=== PATIENT | male | born 1995 | race Caucasian/White ===

== ENCOUNTER 2018-12-21 13:35 | Observation (INO) | payer OTHER, BC ==
[~2018-12-21 13:35] MED LIST: Enoxaparin 40 MG/0.4 ML Syringe SUBCUT SCH
--- NOTE | 2018-12-21 14:07 | CR ---
Clinical history: 23-year-old male exposed to carbon monoxide. Interpretation: Upright AP portable chest with external cardiac specialist leads. Normal cardiac silhouette without alveolar edema or dependent pleural effusion. No lung mass, hilar lymphadenopathy or focal lobar pneumonia. No atelectasis/collapse. No pneumothorax or signs of pneumomediastinum. CONCLUSION: No acute cardiopulmonary abnormality.
[2018-12-21 14:21] LABS: ANION GAP 13.7; CHLORIDE,CL 102 mmol/L (101-111); SODIUM,NA 137 mmol/L (135-145)
[2018-12-21] MEDS ORDERED: Ondansetron 4 MG/2 ML SDV IVPUSH PRN ×2 (15:18→15:28)
--- NOTE | 2018-12-21 15:24 | PCM.HP ---
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 The patient was exposed to carbon monoxide at the place of work. There was a gas leak at the place of work which was supposed to have been fixed about 2 weeks ago. Patient was on duty since yesterday evening. Woke up this morning and was having severe headache. Headache was generalized in nature. Intensity was about 8 on a scale cough 0-10. Patient was having dizziness which hhe described as lightheadedness. She also felt somewhat nauseated. He was subsequently brought her to the emergency room. His carpal monoxide was checked and found to be elevated. Patient denies having chest pain. Denies abdominal pain. - Related Data Allergies/Adverse Reactions: Allergies Allergy/AdvReac Type Severity Reaction Status Date / Time No Known Allergies Allergy Verified 12/21/18 13:54 Home Medications: Home Meds . [No Known Home Meds] 08/27/14 [History] Past Medical History - Past Health History Medical/Surgical History: Denies Medical/Surgical History HEENT History: Reports: None Cardiovascular History: Reports: None Respiratory History: Reports: None Gastrointestinal History: Reports: None Genitourinary History: Reports: None Musculoskeletal History: Reports: None Neurological History: Reports: None Psychiatric History: Reports: None Endocrine/Metabolic History: Reports: None Hematologic History: Reports: None Immunologic History: Reports: None Oncologic (Cancer) History: Reports: None Dermatologic History: Reports: None - Infectious Disease History Infectious Disease History: Reports: None - Past Surgical History Head Surgeries/Procedures: Reports: None Social & Family History - Family History Family Medical History: Noncontributory - Tobacco Use Smoking Status *Q: Never Smoker Second Hand Smoke Exposure: No - Caffeine Use Caffeine Use: Reports: None - Recreational Drug Use Recreational Drug Use: No - Living Situation & Occupation Living situation: Reports: Single, with Family Occupation: Employed H&P Review of Systems - Review of Systems: Review Of Systems: See Below General: Reports: Malaise, Weakness HEENT: Reports: No Symptoms Pulmonary: Reports: No Symptoms Cardiovascular: Reports: Lightheadedness Gastrointestinal: Reports: No Symptoms Skin: Reports: No Symptoms Psychiatric: Reports: No Symptoms Neurological: Reports: Dizziness, Headache Hematologic/Lymphatic: Reports: No Symptoms Exam - Exam Exam: See Below - Vital Signs Vital Signs: Last Vital Signs Temp 36.7 C 12/21/18 13:55 Pulse 70 12/21/18 13:55 Resp 16 12/21/18 13:55 BP 124/83 12/21/18 13:55 Pulse Ox 100 12/21/18 13:55 Weight: 72.235 kg - Exam Quality Assessment: Supplemental Oxygen General: Alert, Oriented, Cooperative Neck: Supple, Trachea Midline, 2 Lungs: Clear to Auscultation, Normal Respiratory Effort Cardiovascular: Regular Rate, Regular Rhythm GI/Abdominal Exam: Normal Bowel Sounds, Soft, Non-Tender, No Organomegaly, No Distention, No Abnormal Bruit, No Mass, Pelvis Stable Back Exam: Normal Inspection, Full Range of Motion, NT Extremities: Normal Inspection, Normal Range of Motion, Non-Tender, No Pedal Edema, Normal Capillary Refill Neuro Extensive - Mental Status: Alert, Oriented x3, Normal Mood/Affect, Normal Cognition Psychiatric: Alert, Normal Affect, Normal Mood - Patient Data Lab Results Last 24 hrs: Laboratory Results - last 24 hr 12/21/18 12/21/18 12/21/18 Range/Units 13:44 13:44 13:45 WBC 5.0 (5.0-10.0) 10^3/uL RBC 5.37 (4.6-6.2) 10^6/uL Hgb 16.3 (14.0-18.0) g/dL Hct 46.5 (40.0-54.0) % MCV 86.6 (80-100) fL MCH 30.4 (27.0-34.0) pg MCHC 35.1 H (33.0-35.0) g/dL Plt Count 216 (150-450) 10^3/uL Neut % (Auto) 47.0 (42.2-75.2) % Lymph % (Auto) 39.7 (20.5-50.1) % [place] % (Auto) 10.9 H (2-8) % Eos % (Auto) 2.0 (1.0-3.0) % Baso % (Auto) 0.4 (0.0-1.0) % ABG Carboxyhemoglobin 16.9 H (0-10) % Sodium 137 (135-145) mmol/L Potassium 3.7 (3.6-5.0) mmol/L Chloride 102 (101-111) mmol/L Carbon Dioxide 25.0 (21.0-31.0) mmol/L Anion Gap 13.7 BUN 11 (7-18) mg/dL Creatinine 0.9 (0.6-1.3) mg/dL Est Cr Clr Drug Dosing 129.31 mL/min Estimated GFR (MDRD) > 60 BUN/Creatinine Ratio 12.22 Glucose 93 (74-105) mg/dL Calcium 8.9 (8.4-10.2) mg/dl Total Bilirubin 2.0 H (0.2-1.0) mg/dL AST 22 (10-42) IU/L ALT 23 (10-60) IU/L Alkaline Phosphatase 71 (42-121) IU/L Total Protein 7.6 (6.7-8.2) g/dl Albumin 4.6 (3.2-5.5) g/dl Globulin 3.0 Albumin/Globulin Ratio 1.53 Result Diagrams: 12/21/18 13:44 12/21/18 13:44 Problem List Initiated/Reviewed/Updated: Yes Orders Last 24hrs: Active Orders 24 hr Category Date Time Status Patient Status [ADT] Routine ADT 12/21/18 15:18 Ordered Cardiac Monitoring [RC] CONTINUOUS Care 12/21/18 15:19 Ordered EKG Documentation Completion [RC] STAT Care 12/21/18 15:08 Active Oxygen Therapy [RC] PRN Care 12/21/18 15:18 Ordered Up ad Tanesha [RC] ASDIRECTED Care 12/21/18 15:18 Ordered VTE/DVT Education [RC] PER UNIT ROUTINE Care 12/21/18 15:18 Ordered Vital Signs [RC] Q4H Care 12/21/18 15:18 Ordered Regular Diet [DIET] Diet 12/21/18 Lunch Ordered CARBOXYHEMOGLOBIN [BG] Q12H Lab 12/21/18 18:21 Ordered CARBOXYHEMOGLOBIN [BG] Q12H Lab 12/22/18 06:21 Ordered Sodium Chloride 0.9% [Normal Saline] 1,000 ml Med 12/21/18 15:30 Ordered IV ASDIRECTED Resuscitation Status Routine Resus Stat 12/21/18 15:18 Ordered Assessment/Plan Comment:: #. Carbon monoxide poisoning Patient presented with headache, dizziness and nausea Carpal monoxide level is elevated in the blood #. Headache Likely due to carbon monoxide poisoning #.obstructive sleep apnea patient uses CPAP Plan: Admit patient to medical floor 100% nonrebreather oxygen mask Check serial carbon monoxide levels provide patient with CPAP machine
[2018-12-21] MEDS ORDERED: Enoxaparin 40 MG/0.4 ML Syringe SUBCUT SCH (15:30)
[2018-12-21] MEDS ORDERED: Sodium Chloride 0.9% 1,000 ML IV SCH ×2 (15:30)
[2018-12-21] MEDS ORDERED: Acetaminophen 325 MG Tab PO PRN (17:05)
[2018-12-22 10:07] VITALS: BP 124/70
--- NOTE | 2018-12-22 10:37 | PCM.DCSUM1 ---
Discharge Summary - Hospital Course Free Text/Narrative:: Patient was admitted for carbon monoxide poisoning with CO of 16.9 He was placed on high flow oxygen. CO came down to 0.8. Patient denied any symptoms this morning. He is discharged to follow up with PCP. Diagnosis: Stroke: No - Discharge Data Discharge Date: 12/22/18 Discharge Disposition: Home, Self-Care 01 Condition: Good - Patient Instructions Diet: Usual Diet as Tolerated - Discharge Plan *PRESCRIPTION DRUG MONITORING PROGRAM REVIEWED*: Not Applicable *COPY OF PRESCRIPTION DRUG MONITORING REPORT IN PATIENT [place]: Not Applicable Home Medications: Home Meds . [No Known Home Meds] 08/27/14 [History] Oxygen Therapy Mode: Room Air Patient Handouts: Carbon Monoxide Poisoning, [id number] - Discharge Summary/Plan Comment DC Time >30 min.: Yes - General Info Date of Service: 12/22/18 Admission Dx/Problem (Free Text: Admission Diagnosis/Problem Admission Diagnosis/Problem Poisoning Subjective Update: No acute events overnight. Patient reports that he is doing well. He denies chest pain, shortness of breath, fevers, chills, n/v/d/c, no hematochezia or melena. NO dysuria. No acute symptoms. - Review of Systems General: Reports: No Symptoms HEENT: Reports: No Symptoms Pulmonary: Reports: No Symptoms Cardiovascular: Reports: No Symptoms Gastrointestinal: Reports: No Symptoms Genitourinary: Reports: No Symptoms Musculoskeletal: Reports: No Symptoms Skin: Reports: No Symptoms Neurological: Reports: No Symptoms Psychiatric: Reports: No Symptoms - Patient Data Vitals - Most Recent: Last Vital Signs Temp 98.0 F 12/22/18 08:33 Pulse 65 12/22/18 10:07 Resp 20 12/22/18 08:33 BP 124/70 12/22/18 10:07 Pulse Ox 100 12/22/18 08:33 Weight - Most Recent: 166 lb I&O - Last 24 hours: Intake & Output 12/21/18 12/22/18 12/22/18 22:59 06:59 14:59 Intake Total 100 Balance 100 Lab Results - Last 24 hrs: Laboratory Results - last 24 hr 12/21/18 12/21/18 12/21/18 Range/Units 13:44 13:44 13:45 WBC 5.0 (5.0-10.0) 10^3/uL RBC 5.37 (4.6-6.2) 10^6/uL Hgb 16.3 (14.0-18.0) g/dL Hct 46.5 (40.0-54.0) % MCV 86.6 (80-100) fL MCH 30.4 (27.0-34.0) pg MCHC 35.1 H (33.0-35.0) g/dL Plt Count 216 (150-450) 10^3/uL Neut % (Auto) 47.0 (42.2-75.2) % Lymph % (Auto) 39.7 (20.5-50.1) % [place] % (Auto) 10.9 H (2-8) % Eos % (Auto) 2.0 (1.0-3.0) % Baso % (Auto) 0.4 (0.0-1.0) % ABG Carboxyhemoglobin 16.9 H (0-10) % Sodium 137 (135-145) mmol/L Potassium 3.7 (3.6-5.0) mmol/L Chloride 102 (101-111) mmol/L Carbon Dioxide 25.0 (21.0-31.0) mmol/L Anion Gap 13.7 BUN 11 (7-18) mg/dL Creatinine 0.9 (0.6-1.3) mg/dL Est Cr Clr Drug Dosing 129.31 mL/min Estimated GFR (MDRD) > 60 BUN/Creatinine Ratio 12.22 Glucose 93 (74-105) mg/dL Calcium 8.9 (8.4-10.2) mg/dl Total Bilirubin 2.0 H (0.2-1.0) mg/dL AST 22 (10-42) IU/L ALT 23 (10-60) IU/L Alkaline Phosphatase 71 (42-121) IU/L Total Protein 7.6 (6.7-8.2) g/dl Albumin 4.6 (3.2-5.5) g/dl Globulin 3.0 Albumin/Globulin Ratio 1.53 12/21/18 12/22/18 Range/Units 20:42 08:07 WBC (5.0-10.0) 10^3/uL RBC (4.6-6.2) 10^6/uL Hgb (14.0-18.0) g/dL Hct (40.0-54.0) % MCV (80-100) fL MCH (27.0-34.0) pg MCHC (33.0-35.0) g/dL Plt Count (150-450) 10^3/uL Neut % (Auto) (42.2-75.2) % Lymph % (Auto) (20.5-50.1) % [place] % (Auto) (2-8) % Eos % (Auto) (1.0-3.0) % Baso % (Auto) (0.0-1.0) % ABG Carboxyhemoglobin 0.5 0.8 (0-10) % Sodium (135-145) mmol/L Potassium (3.6-5.0) mmol/L Chloride (101-111) mmol/L Carbon Dioxide (21.0-31.0) mmol/L Anion Gap BUN (7-18) mg/dL Creatinine (0.6-1.3) mg/dL Est Cr Clr Drug Dosing mL/min Estimated GFR (MDRD) BUN/Creatinine Ratio Glucose (74-105) mg/dL Calcium (8.4-10.2) mg/dl Total Bilirubin (0.2-1.0) mg/dL AST (10-42) IU/L ALT (10-60) IU/L Alkaline Phosphatase (42-121) IU/L Total Protein (6.7-8.2) g/dl Albumin (3.2-5.5) g/dl Globulin Albumin/Globulin Ratio Med Orders - Current: Current Medications Acetaminophen (Tylenol) 650 mg PO Q4H PRN PRN Reason: Pain Enoxaparin Sodium (Lovenox) 40 mg SUBCUT DAILY [facility] Sodium Chloride (Normal Saline) 1,000 mls @ 50 mls/hr IV ASDIRECTED [facility] Last Admin: 12/21/18 15:48 Dose: 50 mls/hr Ondansetron HCl (Zofran) 4 mg IVPUSH Q6H PRN PRN Reason: Nausea/Vomiting Discontinued Medications Enoxaparin Sodium (Lovenox) 40 mg SUBCUT DAILY [facility] Last Admin: 12/21/18 15:55 Dose: Not Given Sodium Chloride (Normal Saline) 1,000 mls @ 50 mls/hr IV ASDIRECTED [facility] Ondansetron HCl (Zofran) 4 mg IVPUSH Q6H PRN PRN Reason: Nausea/Vomiting - Exam General: Reports: Alert, Oriented, No Acute Distress HEENT: Reports: Pupils Equal, Pupils Reactive, Mucous Membr. Moist/[place] Neck: Reports: Supple Lungs: Reports: Clear to Auscultation, Normal Respiratory Effort Cardiovascular: Reports: Regular Rate, Regular Rhythm GI/Abdominal Exam: Normal Bowel Sounds, Soft, Non-Tender Extremities: Normal Inspection, Non-Tender, No Pedal Edema, Normal Capillary Refill Skin: Reports: Warm, Dry, Intact Neurological: Reports: No New Focal Deficit
== END 2018-12-22 10:50 | disposition home or self-care (01) ==
LOC: DL.ED 13:35 → DL.MS 15:18 → UNDOADMOB 15:18
PROVIDERS: ADMIT Hospitalist; ATTEND Internal Medicine
DX: T58.11XA Toxic effect of carbon monoxide from utility gas, accidental (unintentional), initial encounter (principal); R51 Headache; R42 Dizziness and giddiness; R11.0 Nausea; G47.33 Obstructive sleep apnea (adult) (pediatric); Z99.89 Dependence on other enabling machines and devices
CPT/HCPCS: 36415; 71045; 80053; 82375; 85025; 93005; 99284; G0378; J7030

== ENCOUNTER 2023-12-05 21:01 | Emergency (ER) | payer BC, MEDICAID ==
[2023-12-05 22:27] VITALS: BP 128/86; PULSE 92
== END 2023-12-05 23:01 | disposition home or self-care (01) ==
LOC: DL.ED 21:01
DX: S01.511A Laceration without foreign body of lip, initial encounter (principal); F17.210 Nicotine dependence, cigarettes, uncomplicated; W21.07XA Struck by softball, initial encounter; Y93.89 Activity, other specified
CPT/HCPCS: 99282; 99283

== ENCOUNTER 2025-04-19 14:51 | Emergency (ER) | payer OTHER ==
[2025-04-19] MEDS: Lidocaine 2% with EPINEPHrine 1:200,000 20 ML SDV INJECT ONE (15:21)
[2025-04-19] MEDS: Diphtheria,Pertussis(Acell),Tetanus Vaccine 0.5 ML Syringe IM ONE (15:40)
[2025-04-19 16:02] VITALS: BP 138/99; PULSE 72
== END 2025-04-19 15:58 | disposition home or self-care (01) ==
LOC: DL.ED 14:51
DX: S51.812A Laceration without foreign body of left forearm, initial encounter (principal); Z23 Encounter for immunization; W26.8XXA Contact with other sharp object(s), not elsewhere classified, initial encounter; Y93.89 Activity, other specified
CPT/HCPCS: 12004; 90471; 90715; 99282; 99283; J2004